=== PATIENT | male | born 1995 | race Caucasian/White ===

== ENCOUNTER → 2017-12-01 | Outpatient (CLI) | payer BC ==
[2017-12-03 17:29] LABS: HERPES SIMPLEX AB IGG-1 < 0.90 INDEX (< 0.90); HERPES SIMPLEX AB IGG-2 < 0.90 INDEX (< 0.90)
== END | disposition home or self-care (01) ==
LOC: C.LAB1850 12:08
PROVIDERS: ATTEND Nurse Practitioner Family
DX: Z20.2 Contact with and (suspected) exposure to infections with a predominantly sexual mode of transmission (principal)